=== PATIENT | male | born 1995 | race Caucasian/White ===

== ENCOUNTER 2018-12-02 20:55 | Emergency (ER) | payer OTHER ==
[~2018-12-02] VITALS: Ht 180.3 cm; Wt 72.1 kg
[2018-12-02] MEDS ORDERED: SYMBICORT 16010.2 GM IH (23:39)
[2018-12-02] MEDS ORDERED: MUCINEX DM ER1 EAC1 PO (23:39)
[2018-12-02] MEDS ORDERED: PROMETH-CODEIN 65 ML PO (23:39)
[2018-12-02] MEDS ORDERED: ZITHROMAX500 MG PO (23:39)
== END 2018-12-02 23:50 | disposition home or self-care (01) ==
LOC: ER 20:55
DX: J06.9 Acute upper respiratory infection, unspecified (principal)